=== PATIENT | female | born 1990 | race African-American/Black ===

== ENCOUNTER 2018-01-04 12:56 | Outpatient (CLI) | payer BC | END 2018-01-04 13:23 | disposition home or self-care (01) | LOC: LC 12:56 | PROVIDERS: ATTEND Obstetrics & Gynecology | PROC: 4A1HXCZ Monitoring of Products of Conception, Cardiac Rate, External Approach (ICD-10-PCS; principal; 2018-01-04) | DX: O48.0 Post-term pregnancy (principal); Z3A.40 40 weeks gestation of pregnancy | CPT/HCPCS: 59025 ==

== ENCOUNTER 2018-01-07 11:07 | Outpatient (CLI) | payer BC | END 2018-01-07 11:47 | disposition home or self-care (01) | LOC: LC 11:07 | PROVIDERS: ATTEND Student in an Organized Health Care Education/Training Program | PROC: 4A1HXCZ Monitoring of Products of Conception, Cardiac Rate, External Approach (ICD-10-PCS; principal; 2018-01-07) | DX: O48.0 Post-term pregnancy (principal); Z3A.40 40 weeks gestation of pregnancy | CPT/HCPCS: 59025 ==

== ENCOUNTER 2018-01-08 01:48 | Inpatient (IN) | payer BC ==
--- NOTE | 2018-01-08 01:50 | Non Stress Test Report ---
Non Stress Test Datetime Report Generated by CPN: 01/08/2018 01:50 DEMOGRAPHIC EGA NST: 40.3 EGA NST: 40.0 INDICATION Indication for Study: Ordered by Provider Indication for Study: Ordered by Provider; Other VITAL SIGNS Temperature - NST: 99.1 MONITORING Monitor Explained: Monitor Explained; Test Explained; Patient Verbalized Understanding Monitor Explained: Monitor Explained; Test Explained; Patient Verbalized Understanding Time on Monitor: 01/07/2018 11:15 Time on Monitor: 01/04/2018 13:06 Time off Monitor: 01/07/2018 11:42 Time off Monitor: 01/04/2018 13:28 NST Duration: 27 NST Duration: 22 NST INTERVENTIONS NST Interventions: PO Hydration; Reposition Patient NST Interventions: PO Hydration; Reposition Patient Physician Notified NST: SHELIA Michel Physician Notified NST: J Stevenson CNM BABY A: [id number] BABY A Movement : Present Movement : Present Contraction Frequency : x3 Contraction Frequency : intermittent FHR Baseline : 125 FHR Baseline : 135 Accelerations : 15X15 Accelerations : 15X15 Decelerations : None Decelerations : None Variability : Moderate 6-25bpm Variability : Moderate 6-25bpm NST Review: Meets Criteria for Reactive NST NST Review: Meets Criteria for Reactive NST NST Review and Verified By : TREMAYNE العراقيT Review and Verified By : TREMAYNE العراقي Results: Reactive NST Results: Reactive NST REPORT Report Trigger: Send Report
[2018-01-08] MEDS ORDERED: RINGERS SOLUTION,LACTATED 1,000 ML IV ONE (02:18)
[2018-01-08] MEDS ORDERED: PENICILLIN G-K 5 MILLION UNIT VIAL ONE ×2 (02:18→05:46)
[2018-01-08] MEDS ORDERED: PENICILLIN G POTASSIUM 5,000,000 UNIT in DEXTROSE 5%-WATER 100 ML IV ONE (02:18)
[2018-01-08] MEDS ORDERED: LIDOCAINE 1% INJ-PF (10 MG/ML) 30 ML SDV ONE (02:24)
[2018-01-08] MEDS ORDERED: OXYTOCIN/NORMAL SALINE 20 UNIT/1,000 ML RTUINJ ONE (02:24)
[2018-01-08] MEDS ORDERED: OXYTOCIN 10 UNIT/ML VIAL ONE (02:24)
[2018-01-08] MEDS ORDERED: MISOPROSTOL 0.2 MG TABLET ONE (02:24)
[2018-01-08] MEDS: RINGERS SOLUTION,LACTATED 1,000 ML IV PRN ×3 (02:50→09:28)
[2018-01-08 02:55] LABS: APPEARANCE,URINE SLIGHTLY-CLOUDY; BILIRUBIN,URINE NEGATIVE (NEGATIVE); COLOR,URINE STRAW; GLUCOSE, URINE NEGATIVE (NEGATIVE); KETONES,URINE NEGATIVE (NEGATIVE); LEUKOCYTE ESTERASE,URINE SMALL (NEGATIVE); NITRITE,URINE NEGATIVE (NEGATIVE); PROTEIN,URINE NEGATIVE (NEGATIVE); URINE SPECIFIC GRAVITY 1.008; UROBILINOGEN,URINE NEGATIVE mg/dL (<2.0)
[2018-01-08 02:57] LABS: ABSOLUTE EOSINOPHILS # (AUTO) 0.2 10^3/uL (0.0-0.6); ABSOLUTE LYMPHOCYTES (AUTO) 1.9 10^3/uL (0.5-4.7); ABSOLUTE MONOCYTES (AUTO) 1.4 10^3/uL (0.1-1.4); ABSOLUTE NEUT (AUTO) 10.3 10^3/uL (1.7-8.2); BASOPHILS % (AUTO) 0.3 % (0-2); EOSINOPHILS % (AUTO) 1.2 % (0-6); HEMATOCRIT 33.7 % (36.0-47.0); HEMOGLOBIN 11.2 g/dL (12.0-15.5); MEAN CORPUSCULAR HEMOGLOBIN 28.2 pg (27.0-33.4); MEAN CORPUSCULAR HGB CONC 33.1 g/dL (32.0-36.0); MEAN CORPUSCULAR VOLUME 85 fl (80-97); MONOCYTES % (AUTO) 9.8 % (3-13); PLATELET COUNT 209 10^3/uL (150-450); RED BLOOD COUNT 3.96 10^6/uL (3.72-5.28); RED CELL DISTRIBUTION WIDTH 15.3 % (11.5-14.0); SEGMENTED NEUTROPHILS % (AUTO) 74.7 % (42-78); TOTAL CELLS COUNTED % (AUTO) 100 %; WHITE BLOOD COUNT 13.8 10^3/uL (4.0-10.5)
--- NOTE | 2018-01-08 03:05 | Admission Physical ---
Datetime Report Generated by CPN: 01/08/2018 03:05 CURRENT ADMISSION Chief Complaint: Uterine Contractions Indication for Induction: Not Applicable Admit Impression : Term, Intrauterine ; Active Labor; Intact Membranes Admit Plan: Admit to Unit; Initiate Labor Protocol ALLERGIES Medication Allergies: No Medication Allergies: No Known Allergies (01/07/2018) Latex: No Latex Allergies OBSTETRICAL HISTORY EDC: 01/04/2018 00:00 : 2 Para: 1 Term: 1 : 0 SAB: 0 IAB: 0 Ectopic: 0 Livin Cesareans: 0 VBACs: 0 Multiple Births: 0 Gestational Diabetes: No Rh Sensitization: No Incompetent Cervix: No EUNICE: No Infertility: No ART Treatment: No Uterine Anomaly: No IUGR: No Hx Previous C/S: No Macrosomia: No Hx Loss/Stillborn: No PIH: No Hx : No Placenta Previa/Abruption: No Depression/PP Depression: No PTL/PROM: No Post Hemorrhage: No Current Procedures: Ultrasound; NST SEE RECORDS Alcohol: No Marijuana : No Cocaine: No Other Illicit Drugs: No Cigarettes: Never Smoker. [id number] MEDICAL HISTORY Diabetes: No Blood Transfusion: No Pulmonary Disease (Asthma, TB): No Breast Disease: No Hypertension: No Board Member Surgery: No Heart Disease: No Hosp/Surgery: No Autoimmune Disorder: No Anesthetic Complications: No Kidney Disease: No Abnormal Pap Smear: No Neuro/Epilepsy: No Psychiatric Disorders: No Other Medical Diseases: No Hepatitis/Liver Disease: No Significant Family History: No Varicosities/Phlebitis: No Trauma/Violence : No Thyroid Dysfunction: No INFECTIOUS HISTORY Gonorrhea: No Genital Herpes: No Chlamydia: No Tuberculosis: No Syphilis: No Hepatitis: No HIV/AIDS Exposure: No Rash or Viral Illness: No HPV: No PHYSICAL EXAM General: Normal HEENT: Normal Neurologic: Normal Thyroid: Deferred Heart: Normal Lungs: Normal Breast: Deferred Back: Normal Abdomen: Normal Genitourinary Exam: Normal Extremities: Normal DTRs: Normal Pelvic Type: Adequate Vital Signs: Reviewed VAGINAL EXAM Dilatation: 5 Effacement: 50 Station: 0 Contraction Comments: q3-5 MEMBRANES Membranes: Intact FETUS A EGA: 40.4 Monitoring: External US FHR- Baseline: 125 Variability: Moderate 6-25bpm Accelerations: 15X15 Decelerations: None FHR Category: Category I Presentation: Vertex Admit Comment: 27yo at 40+4ega presents for regular uterine ctx and now cervical change with cvx 5 cm. GBS pos - will give PCN for prophy. Failed 1 hr - passed 3 hr but fasting BS was 112. Admit to Labor and delivery. augment labor if needed. Pain meds if desires. Epidural upon patient request. Anticipate PLANS FOR LABOR AND DELIVERY Labor and Delivery: None Pain Management: Medications Feeding Preference: Formula Benefit of Breast Feed Discussed: Yes Circumcision: Yes INFORMED CONSENT Informed Consent Obtained: Vaginal Delivery; Risks, Benefits and Alternatives Discussed Signature: with User ID: [email or web address]
[2018-01-08 03:11] LABS: URINE AMPHETAMINES SCREEN NEGATIVE; URINE BARBITURATES SCREEN NEGATIVE; URINE BENZODIAZEPINES SCREEN NEGATIVE; URINE COCAINE SCREEN NEGATIVE; URINE MARIJUANA (THC) SCREEN NEGATIVE; URINE METHADONE SCREEN NEGATIVE; URINE PHENCYCLIDINE SCREEN NEGATIVE
[2018-01-08] MEDS ORDERED: PENICILLIN G POTASSIUM 2,500,000 UNIT in DEXTROSE 5%-WATER 50 ML IV SCH (06:19)
[2018-01-08] MEDS ORDERED: BENZOCAINE/MENTHOL AEROSOL SPRAY 56 ML TOP PRN (09:05)
[2018-01-08] MEDS ORDERED: PROMETHAZINE HCL INJ 25 MG/1 ML VIAL IV PRN (09:05)
[2018-01-08] MEDS ORDERED: PROMETHAZINE HCL 25 MG TABLET PO PRN (09:05)
[2018-01-08] MEDS ORDERED: OXYTOCIN/NORMAL SALINE 20 UNIT/1,000 ML RTUINJ IV PRN (09:05)
[2018-01-08] MEDS ORDERED: DIPHENHYDRAMINE HCL 25 MG CAPSULE PO PRN (09:05)
[2018-01-08] MEDS ORDERED: DIBUCAINE 1% OINTMENT 28 GM TP PRN (09:05)
[2018-01-08] MEDS ORDERED: MAGNESIUM HYDROXIDE SUSP 30 ML UDCUP PO PRN (09:05)
[2018-01-08] MEDS ORDERED: NA PHOS,M-B/NA PHOS,DI-BA (ADULT) 133 ML ENEMA PR PRN (09:05)
[2018-01-08] MEDS ORDERED: MEASLES,MUMPS&RUBELLA VACC/PF 0.5 ML VIAL SUBCUT PRN (09:05)
[2018-01-08] MEDS ORDERED: ACETAMINOPHEN 650 MG SUPP.RECT PR PRN (09:05)
[2018-01-08] MEDS ORDERED: PSEUDOEPHEDRINE HCL 30 MG TABLET PO PRN (09:05)
[2018-01-08] MEDS ORDERED: DIPH/PERTUSS(ACELL)/TETANUS VAC/PF 0.5 ML SYR (>=10YO) IM PRN (09:05)
[2018-01-08] MEDS ORDERED: PROMETHAZINE HCL 25 MG SUPP.RECT PR PRN (09:05)
[2018-01-08] MEDS ORDERED: GLYCERIN/WITCH HAZEL LEAF 1 EACH MED..PAD TP PRN (09:05)
[2018-01-08] MEDS ORDERED: ACETAMINOPHEN WITH CODEINE #3 TABLET PO PRN ×2 (09:05)
--- NOTE | 2018-01-08 09:07 | Warning Signs in Babies ---
VOD Warning Signs Datetime Report Generated by [facility]: 01/08/2018 09:06 VOD#[id number] -Warning Signs in Babies: Needs to be viewed. (01/04/2018 10:14:Becky Bradshaw RN)
[2018-01-08] MEDS ORDERED: IBUPROFEN 800 MG TABLET ONE (10:13)
--- NOTE | 2018-01-08 10:33 | Delivery Summary ---
Del Sum A-C Datetime Report Generated by CPN: 01/08/2018 10:33 DELIVERY PERSONNEL DELIVERY PERSONNEL: [id number] Delivery Doctor:: Xochitl Stevenson CNM Labor and Delivery Nurse:: Becky Bradshaw RN Nursery Nurse:: Stephanie CASPER Hole Digger Truck Driver/GRAIN MILL PRODUCTS INSPECTOR: Agatha Gonzales GRAIN MILL PRODUCTS INSPECTOR II MATERNAL INFORMATION Delivery Anesthesia: Local Medications During Delivery: none Medications After Delivery: Pitocin Drip 20 Units/1000ml NSS Maternal Complications: None Provider Comments: viable male from OA to GLADYS over intact perineum, vaginal lac and rt periurethral, baby place on mothers abd, cord clamped and cut by FOB after 2 min, NC x 1, reduced before delivery withou difficulty, spont delivery of grossly nl intact placenta, 3 vc, lacerations repaired with 2-0 chroomic without difficulty baby and mom remaind in recovery in stable condition xylocaine 1% used for repair LABOR SUMMARY EDC: 01/04/2018 00:00 No. Babies in Womb: 1 Attempted: No Labor Anesthesia: None LABOR INFORMATION Onset of Labor: 01/08/2018 01:30 Complete Dilatation: 01/08/2018 08:25 Oxytocin: N/A Group B Beta Strep: positive Antibiotics # of Doses: 2 Antibiotics Time of Last Dose: 619 Name of Antibiotic Given: PCN Steroids Given: None Reason Steroids Not Administered: Not Applicable MEMBRANES Membranes Rupture Method: Artificial Rupture of Membranes: 01/08/2018 08:25 Length of Rupture (hr): 0.15 Amniotic Fluid Color: Clear Amniotic Fluid Amount: Scant Amniotic Fluid Odor: Normal STAGES OF LABOR Stage 1 hr: 6 Stage 1 min: 55 Stage 2 hr: 0 Stage 2 min: 9 Stage 3 hr: 0 Stage 3 min: 8 Total Time in Labor hr: 7 Total Time in Labor min: 12 VAGINAL DELIVERY Episiotomy: None Laceration #1: Vaginal Laceration Extension #1: First Degree Laceration #2: Periurethral Laceration Extension #2: First Degree Laceration Repair: Yes Laceration Repair Note: 2-0 chromic Sponge Count Correct: N/A; Vaginal Sweep Performed Sharps Count Correct: N/A CSECTION DELIVERY CSection Incision: N/A BABY A INFORMATION Delivery Date/Time: 01/08/2018 08:34 Method of Delivery: Vaginal Born in Route : No : N/A Forceps: N/A Vacuum Extraction: N/A Shoulder Dystocia : No PRESENTATION/POSITION BABY A Presentation: Cephalic Cephalic Presentation: Vertex Vertex Position: Left Occipital Anterior Breech Presentation: N/A PLACENTA INFORMATION BABY A Placenta Delivery Time : 01/08/2018 08:42 Placenta Method of Delivery: Spontaneous Placenta Status: Delivered SCORES BABY A Heart Rate 1 min: >100 bpm Resp Effort 1 min: Good Cry Reflex Irritability 1 min: Cough or Sneeze or Pulls Away Muscle Tone 1 min: Active Motion Color 1 min: Body [place], Extremities Blue SCORE 1 MIN: 9 Heart Rate 5 min: >100 bpm Resp Effort 5 min: Good Cry Reflex Irritability 5 min: Cough or Sneeze or Pulls Away Muscle Tone 5 min: Active Motion Color 5 min: Body [place], Extremities Blue SCORE 5 MIN: 9 Resuscitation Effort 10 min: N/A INFORMATION BABY A Gestational Age at Delivery: 40.4 Gestational Status: Full Term- 39- 40.6 Weeks Outcome : Liveborn Infant Condition : Stable Sex: Male IDENTIFICATION BABY A Infant Verification Date/Time: 01/08/2018 08:51 ID Band Number: [id number] Mother's Name Verified: Yes Infant RN Verifying Infant: Killing[place] RN Additional Verifying Personnel: Brown GRAIN MILL PRODUCTS INSPECTOR WEIGHT/LENGTH BABY A Infant Birthweight (gm): 3350 Weight (lb): 7 Infant Weight (oz): 6 Length (in): 20.50 Infant Length (cm): 52.07 CORD INFORMATION BABY A No. Cord Vessels: 3 Nuchal Cord : Around Neck x1, Loose Cord Blood Taken: Yes-For Eval (Mom's Blood Type - or O+) Suction: None ASSESSMENT BABY A Skin to Skin: Yes BABY B INFORMATION : N/A
[2018-01-08] MEDS: FAMOTIDINE 20 MG TABLET PO SCH ×2 (11:57→21:24)
[2018-01-08] MEDS: FERROUS SULFATE 325 MG TABLET PO SCH ×2 (11:57→18:56)
[2018-01-08] MEDS: DOCUSATE SODIUM 100 MG CAPSULE PO SCH ×2 (11:58→18:56)
[2018-01-08] MEDS: PRENATAL VITAMIN W DHA CAPSULE PO SCH (11:58)
[2018-01-08] MEDS: SENNOSIDES/DOCUSATE 8.6-50 MG 1 EACH TABLET PO SCH (11:58)
[2018-01-08] MEDS: IBUPROFEN 800 MG TABLET PO SCH ×2 (13:59→21:25)
[2018-01-09 06:28] LABS: ABSOLUTE BASOPHILS # (AUTO) 0.1 10^3/uL (0.0-0.2); ABSOLUTE EOSINOPHILS # (AUTO) 0.1 10^3/uL (0.0-0.6); ABSOLUTE LYMPHOCYTES (AUTO) 2.6 10^3/uL (0.5-4.7); ABSOLUTE MONOCYTES (AUTO) 1.7 10^3/uL (0.1-1.4); ABSOLUTE NEUT (AUTO) 14.2 10^3/uL (1.7-8.2); BASOPHILS % (AUTO) 0.4 % (0-2); EOSINOPHILS % (AUTO) 0.6 % (0-6); HEMATOCRIT 33.2 % (36.0-47.0); HEMOGLOBIN 10.8 g/dL (12.0-15.5); LYMPHOCYTES % (AUTO) 13.9 % (13-45); MEAN CORPUSCULAR HEMOGLOBIN 27.7 pg (27.0-33.4); MEAN CORPUSCULAR HGB CONC 32.6 g/dL (32.0-36.0); MEAN CORPUSCULAR VOLUME 85 fl (80-97); MONOCYTES % (AUTO) 9.1 % (3-13); PLATELET COUNT 188 10^3/uL (150-450); RED BLOOD COUNT 3.91 10^6/uL (3.72-5.28); RED CELL DISTRIBUTION WIDTH 15.2 % (11.5-14.0); TOTAL CELLS COUNTED % (AUTO) 100 %; WHITE BLOOD COUNT 18.7 10^3/uL (4.0-10.5)
[2018-01-09] MEDS: IBUPROFEN 800 MG TABLET PO SCH ×3 (06:45→21:00)
--- NOTE | 2018-01-09 09:29 | PDOC PROGRESS REPORT ---
Subjective-OB Progress Note for:: 01/09/18 Subjective: Doing well, no c/o, , voiding Physical Exam (OB) Vital Signs: Temp Pulse Resp BP Pulse Ox 97.7 F 87 18 114/70 98 01/09/18 08:05 01/09/18 08:05 01/09/18 08:05 01/09/18 08:05 01/09/18 08:05 Intake & Output 01/08/18 01/09/18 01/10/18 06:59 06:59 06:59 Intake Total 2829 Balance 2829 Weight 95 kg - PIH/Pre-Eclampsia DTR's: 2 + Clonus: Negative Headache: Absent Epigastric Pain: No Visual Changes: No - Lochia Lochia Amount: Small 10-25 ml Lochia Color: Rubra/Red - Abdomen Description: Tender, Soft Hernia Present: No Fundal Description: Firm, Midline Fundal Height: u/u - u/2 Objective-Diagnostic Laboratory: 01/09/18 06:19 01/09/18 06:19 WBC 18.7 H RBC 3.91 Hgb 10.8 L Hct 33.2 L MCV 85 MCH 27.7 MCHC 32.6 RDW 15.2 H Plt Count 188 Seg Neutrophils % 76.0 Lymphocytes % 13.9 Monocytes % 9.1 Eosinophils % 0.6 Basophils % 0.4 Absolute Neutrophils 14.2 H Absolute Lymphocytes 2.6 Absolute Monocytes 1.7 H Absolute Eosinophils 0.1 Absolute Basophils 0.1 Assessment and Plan(PN) - Assessment and Plan (1) Delivery normal Is this a current diagnosis for this admission?: Yes (2) Carrier of group B Streptococcus Is this a current diagnosis for this admission?: Yes (3) Active labor at term Is this a current diagnosis for this admission?: Yes - Time Spent with Patient Time with patient: Less than 15 minutes Medications reviewed and adjusted accordingly: Yes - Disposition Anticipated Discharge: Home Within: within 24 hours
[2018-01-09] MEDS: DOCUSATE SODIUM 100 MG CAPSULE PO SCH ×2 (10:10→17:12)
[2018-01-09] MEDS: FERROUS SULFATE 325 MG TABLET PO SCH ×2 (10:10→17:12)
[2018-01-09] MEDS: FAMOTIDINE 20 MG TABLET PO SCH ×2 (10:10→21:02)
[2018-01-09] MEDS: SENNOSIDES/DOCUSATE 8.6-50 MG 1 EACH TABLET PO SCH (10:10)
[2018-01-09] MEDS: PRENATAL VITAMIN W DHA CAPSULE PO SCH (10:10)
[2018-01-10] MEDS: IBUPROFEN 800 MG TABLET PO SCH (06:11)
[2018-01-10 07:55] VITALS: BP 117/62
[2018-01-10 09:11] LABS: HEMATOCRIT 34.3 % (36.0-47.0); HEMOGLOBIN 11.2 g/dL (12.0-15.5); MEAN CORPUSCULAR HEMOGLOBIN 27.9 pg (27.0-33.4); MEAN CORPUSCULAR HGB CONC 32.7 g/dL (32.0-36.0); MEAN CORPUSCULAR VOLUME 86 fl (80-97); PLATELET COUNT 199 10^3/uL (150-450); RED BLOOD COUNT 4.02 10^6/uL (3.72-5.28); RED CELL DISTRIBUTION WIDTH 15.5 % (11.5-14.0); WHITE BLOOD COUNT 12.7 10^3/uL (4.0-10.5)
[2018-01-10] MEDS: DOCUSATE SODIUM 100 MG CAPSULE PO SCH (09:32)
[2018-01-10] MEDS: FAMOTIDINE 20 MG TABLET PO SCH (09:32)
[2018-01-10] MEDS: FERROUS SULFATE 325 MG TABLET PO SCH (09:32)
[2018-01-10] MEDS: SENNOSIDES/DOCUSATE 8.6-50 MG 1 EACH TABLET PO SCH (09:32)
[2018-01-10] MEDS: PRENATAL VITAMIN W DHA CAPSULE PO SCH (09:34)
--- NOTE | 2018-01-10 10:05 | PDOC PROGRESS REPORT ---
Subjective-OB Progress Note for:: 01/10/18 Subjective: Doing well, ready to go home, no c/o Physical Exam (OB) Vital Signs: Temp Pulse Resp BP Pulse Ox 97.8 F 84 18 117/62 99 01/10/18 08:50 01/10/18 08:50 01/10/18 08:50 01/10/18 08:50 01/10/18 08:50 Intake & Output 01/09/18 01/10/18 01/11/18 06:59 06:59 06:59 Intake Total 2829 Balance 2829 - PIH/Pre-Eclampsia DTR's: 2 + Clonus: Negative Headache: Absent Epigastric Pain: No Visual Changes: No - Lochia Lochia Amount: Small 10-25 ml Lochia Color: Rubra/Red - Abdomen Description: Soft Hernia Present: No Fundal Description: Firm, Midline Fundal Height: u/u - u/2 Objective-Diagnostic Laboratory: 01/10/18 08:40 01/10/18 08:40 WBC 12.7 H RBC 4.02 Hgb 11.2 L Hct 34.3 L MCV 86 MCH 27.9 MCHC 32.7 RDW 15.5 H Plt Count 199 Assessment and Plan(PN) - Assessment and Plan (1) Delivery normal Is this a current diagnosis for this admission?: Yes (2) Carrier of group B Streptococcus Is this a current diagnosis for this admission?: Yes (3) Active labor at term Is this a current diagnosis for this admission?: Yes - Time Spent with Patient Time with patient: Less than 15 minutes Medications reviewed and adjusted accordingly: Yes - Disposition Anticipated Discharge: Home Within: Other - home today
--- NOTE | 2018-01-10 10:08 | PDOC DISCHARGE SUMMARY ---
Final Diagnosis Discharge Date: 01/10/18 - Final Diagnosis (1) Delivery normal Is this a current diagnosis for this admission?: Yes (2) Carrier of group B Streptococcus Is this a current diagnosis for this admission?: Yes (3) Active labor at term Is this a current diagnosis for this admission?: Yes Discharge Data - Discharge Medication Home Medications: Pnv No.121/Iron/Folic Acid [ Multivitamin Tablet] 1 tab PO DAILY Gestational Age: 40.4 Reason(s) for Admission: Onset of Labor, Group B Strep Positive Procedures: NST, Ultrasound Intrapartum Procedure(s): Spontaneous Vaginal Delivery Complication(s): Laceration-Labial - Bonnie Data Baby 1 Male Home with Mother: Yes Complications: No - Diagnosis Test Laboratory: Temp Pulse Resp BP Pulse Ox 97.8 F 84 18 117/62 99 01/10/18 08:50 01/10/18 08:50 01/10/18 08:50 01/10/18 08:50 01/10/18 08:50 01/08/18 01/08/18 01/09/18 01:54 02:44 06:19 RBC 3.96 3.91 Hgb 11.2 L 10.8 L Hct 33.7 L 33.2 L Urine Opiates Screen NEGATIVE 01/10/18 08:40 RBC 4.02 Hgb 11.2 L Hct 34.3 L Urine Opiates Screen - Discharge information/Instructions Discharge Activity: Balance Activity w/Rest, No Lifting Over 10 Pounds, Pelvic Rest, No tub bath, Walk Frequently Discharge Diet: As Tolerated, Regular Disposition: HOME, SELF-CARE Follow up with: [facility] in: 3, Weeks
== END 2018-01-10 13:15 | disposition home or self-care (01) | DRG 775 ==
LOC: EEVIPCON 01:48 → LC 01:48 → LR 02:18 → 2S 11:16
PROVIDERS: ADMIT Student in an Organized Health Care Education/Training Program; ATTEND Student in an Organized Health Care Education/Training Program
PROC: 10E0XZZ Delivery of Products of Conception, External Approach (ICD-10-PCS; principal; 2018-01-08)
PROC: 0HQ9XZZ Repair Perineum Skin, External Approach (ICD-10-PCS; 2018-01-08)
PROC: 0UQMXZZ Repair Vulva, External Approach (ICD-10-PCS; 2018-01-08)
PROC: 4A1HXCZ Monitoring of Products of Conception, Cardiac Rate, External Approach (ICD-10-PCS; 2018-01-08)
PROC: 3E0234Z Introduction of Serum, Toxoid and Vaccine into Muscle, Percutaneous Approach (ICD-10-PCS; 2018-01-10)
DX: O99.824 Streptococcus B carrier state complicating childbirth (principal); O71.82 Other specified trauma to perineum and vulva; O70.0 First degree perineal laceration during delivery; O69.81X0 Labor and delivery complicated by cord around neck, without compression, not applicable or unspecified; Z3A.40 40 weeks gestation of pregnancy; Z23 Encounter for immunization; Z37.0 Single live birth
CPT/HCPCS: 36415; 80307; 81005; 85025; 85027; 86592; 86850; 86900; 86901; 90715; J2540; J2590; J3490

== ENCOUNTER 2019-02-28 17:03 | Outpatient (CLI) | payer BC ==
[2019-02-28 17:40] LABS: APPEARANCE,URINE CLEAR; BILIRUBIN,URINE NEGATIVE (NEGATIVE); COLOR,URINE STRAW; GLUCOSE, URINE NEGATIVE (NEGATIVE); KETONES,URINE TRACE mg/dL (NEGATIVE); LEUKOCYTE ESTERASE,URINE SMALL (NEGATIVE); NITRITE,URINE NEGATIVE (NEGATIVE); PROTEIN,URINE NEGATIVE (NEGATIVE); URINE SPECIFIC GRAVITY 1.008; UROBILINOGEN,URINE NEGATIVE mg/dL (<2.0)
[2019-02-28] MEDS ORDERED: RINGERS SOLUTION,LACTATED 1,000 ML IV SCH (17:45)
[2019-02-28 18:12] LABS: URINE AMPHETAMINES SCREEN NEGATIVE; URINE BARBITURATES SCREEN NEGATIVE; URINE BENZODIAZEPINES SCREEN NEGATIVE; URINE COCAINE SCREEN NEGATIVE; URINE MARIJUANA (THC) SCREEN NEGATIVE; URINE METHADONE SCREEN NEGATIVE; URINE PHENCYCLIDINE SCREEN NEGATIVE
--- NOTE | 2019-02-28 21:51 | Non Stress Test Report ---
Non Stress Test Datetime Report Generated by CPN: 02/28/2019 21:50 DEMOGRAPHIC EGA NST: 37.1 INDICATION Indication for Study (NST) Other: 37.1 Low VADIM MONITORING Monitor Explained: Monitor Explained; Test Explained; Patient Verbalized Understanding Time on Monitor: 02/28/2019 17:30 Time off Monitor: 02/28/2019 17:53 NST Duration: 23 NST INTERVENTIONS NST Interventions: IV Fluids Physician Notified NST: Dr. Younger BABY A: [id number] BABY A Movement : Present Contraction Frequency : Denies FHR Baseline : 140 Accelerations : 15X15 Decelerations : None Variability : Moderate 6-25bpm NST Review: Meets Criteria for Reactive NST NST Review and Verified By : Merced Dobbs RN NST Results: Reactive NST REPORT Report Trigger: Send Report
--- NOTE | 2019-03-01 05:55 | RADIOLOGY REPORT (SQ) ---
EXAM DESCRIPTION: US LIMITED COMPLETED DATE/TME: 02/28/2019 21:10 CLINICAL HISTORY: 28 years, Female, Repeat VADIM @ 37.1 wks COMPARISON: None available at the time of dictation. TECHNIQUE: Transabdominal pelvic ultrasound. LIMITATIONS: None. FINDINGS: A single live intrauterine is identified in the cephalic position. The cervix is closed and measures approximately 3.5 cm in length. The placenta is anterior. The heart rate measures 132 bpm. The VADIM measures 9.1 cm. IMPRESSION: Single live intrauterine . VADIM measures 9.1 cm. copyright 2010 [employer]- All Rights Reserved
== END 2019-02-28 21:52 | disposition home or self-care (01) ==
LOC: EEVIPCON 17:03 → LC 17:03
PROVIDERS: ATTEND Obstetrics & Gynecology
PROC: 4A1HXCZ Monitoring of Products of Conception, Cardiac Rate, External Approach (ICD-10-PCS; principal; 2019-02-28)
DX: O26.893 Other specified pregnancy related conditions, third trimester (principal); E86.0 Dehydration; Z3A.37 37 weeks gestation of pregnancy
CPT/HCPCS: 59025; 76815; 80307; 81005

== ENCOUNTER 2019-03-12 18:15 | Inpatient (IN) | payer BC ==
[2019-03-12] MEDS ORDERED: RINGERS SOLUTION,LACTATED 1,000 ML IV PRN (18:40)
[2019-03-12] MEDS ORDERED: NALBUPHINE HCL INJ 10 MG/1 ML AMPULE ONE (18:46)
[2019-03-12 18:47] LABS: APPEARANCE,URINE CLOUDY; BILIRUBIN,URINE NEGATIVE (NEGATIVE); COLOR,URINE YELLOW; GLUCOSE, URINE NEGATIVE (NEGATIVE); KETONES,URINE NEGATIVE (NEGATIVE); LEUKOCYTE ESTERASE,URINE LARGE (NEGATIVE); NITRITE,URINE NEGATIVE (NEGATIVE); PROTEIN,URINE 30 mg/dL (NEGATIVE); URINE SPECIFIC GRAVITY 1.024; UROBILINOGEN,URINE NEGATIVE mg/dL (<2.0)
[2019-03-12] MEDS ORDERED: MISOPROSTOL 0.2 MG TABLET ONE (19:09)
[2019-03-12] MEDS ORDERED: OXYTOCIN/NORMAL SALINE 20 UNIT/1,000 ML RTUINJ ONE (19:09)
[2019-03-12] MEDS ORDERED: LIDOCAINE 1% INJ-PF (10 MG/ML) 30 ML SDV ONE (19:09)
[2019-03-12] MEDS ORDERED: OXYTOCIN 10 UNIT/ML VIAL ONE (19:09)
[2019-03-12 19:10] LABS: ABSOLUTE BASOPHILS # (AUTO) 0.1 10^3/uL (0.0-0.2); ABSOLUTE EOSINOPHILS # (AUTO) 0.1 10^3/uL (0.0-0.6); ABSOLUTE LYMPHOCYTES (AUTO) 2.3 10^3/uL (0.5-4.7); ABSOLUTE NEUT (AUTO) 10.5 10^3/uL (1.7-8.2); BASOPHILS % (AUTO) 0.4 % (0-2); EOSINOPHILS % (AUTO) 0.9 % (0-6); HEMATOCRIT 38.1 % (36.0-47.0); LYMPHOCYTES % (AUTO) 16.2 % (13-45); MEAN CORPUSCULAR HEMOGLOBIN 29.4 pg (27.0-33.4); MEAN CORPUSCULAR HGB CONC 34.2 g/dL (32.0-36.0); MEAN CORPUSCULAR VOLUME 86 fl (80-97); MONOCYTES % (AUTO) 7.3 % (3-13); PLATELET COUNT 231 10^3/uL (150-450); RED BLOOD COUNT 4.43 10^6/uL (3.72-5.28); RED CELL DISTRIBUTION WIDTH 14.7 % (11.5-14.0); SEGMENTED NEUTROPHILS % (AUTO) 75.2 % (42-78); TOTAL CELLS COUNTED % (AUTO) 100 %
[2019-03-12] MEDS ORDERED: RINGERS SOLUTION,LACTATED 1,000 ML IV ONE (19:10)
[2019-03-12 19:13] LABS: URINE AMPHETAMINES SCREEN NEGATIVE; URINE BARBITURATES SCREEN NEGATIVE; URINE BENZODIAZEPINES SCREEN NEGATIVE; URINE COCAINE SCREEN NEGATIVE; URINE MARIJUANA (THC) SCREEN NEGATIVE; URINE METHADONE SCREEN NEGATIVE; URINE PHENCYCLIDINE SCREEN NEGATIVE
[2019-03-12] MEDS ORDERED: BENZOCAINE/MENTHOL AEROSOL SPRAY 56 ML TOP PRN (21:55)
[2019-03-12] MEDS ORDERED: ACETAMINOPHEN WITH CODEINE #3 TABLET PO PRN (21:55)
[2019-03-12] MEDS ORDERED: MEASLES,MUMPS&RUBELLA VACC/PF 0.5 ML VIAL SUBCUT PRN (21:55)
[2019-03-12] MEDS ORDERED: GLYCERIN/WITCH HAZEL LEAF 1 EACH MED..WIPE TP PRN (21:55)
[2019-03-12] MEDS ORDERED: MAGNESIUM HYDROXIDE SUSP 30 ML UDCUP PO PRN (21:55)
[2019-03-12] MEDS ORDERED: PROMETHAZINE HCL 25 MG SUPP.RECT PR PRN (21:55)
[2019-03-12] MEDS ORDERED: PROMETHAZINE HCL INJ 25 MG/1 ML VIAL IV PRN (21:55)
[2019-03-12] MEDS ORDERED: PSEUDOEPHEDRINE HCL 30 MG TABLET PO PRN (21:55)
[2019-03-12] MEDS ORDERED: ACETAMINOPHEN 650 MG SUPP.RECT PR PRN (21:55)
[2019-03-12] MEDS ORDERED: DIBUCAINE 1% OINTMENT 56 GM TP PRN (21:55)
[2019-03-12] MEDS ORDERED: PROMETHAZINE HCL 25 MG TABLET PO PRN (21:55)
[2019-03-12] MEDS ORDERED: NA PHOS,M-B/NA PHOS,DI-BA (ADULT) 133 ML ENEMA PR PRN (21:55)
[2019-03-12] MEDS ORDERED: DIPHENHYDRAMINE HCL 25 MG CAPSULE PO PRN (21:55)
[2019-03-12] MEDS ORDERED: OXYTOCIN/NORMAL SALINE 20 UNIT/1,000 ML RTUINJ IV PRN (21:55)
[2019-03-12] MEDS ORDERED: DIPH/PERTUSS(ACELL)/TETANUS VAC/PF 0.5 ML SYR (>=10YO) IM PRN (21:55)
[2019-03-12] MEDS ORDERED: IBUPROFEN 800 MG TABLET ONE (21:58)
[2019-03-12] MEDS: IBUPROFEN 800 MG TABLET PO SCH (22:20)
--- NOTE | 2019-03-12 22:24 | Admission Physical ---
Datetime Report Generated by CPN: 03/12/2019 22:24 CURRENT ADMISSION Chief Complaint: Uterine Contractions Admit Impression : Term, Intrauterine ; Active Labor Admit Plan: Admit to Unit; Initiate Labor Protocol ALLERGIES Medication Allergies: No Medication Allergies: No Known Allergies (01/07/2018) Latex: No Latex Allergies Food Allergies: none Environmental Allergies: none OBSTETRICAL HISTORY EDC: 03/20/2019 00:00 : 3 Para: 2 Term: 2 : 0 SAB: 0 IAB: 0 Ectopic: 0 Livin Cesareans: 0 VBACs: 0 Multiple Births: 0 Gestational Diabetes: No Rh Sensitization: No Incompetent Cervix: No EUNICE: No Infertility: No ART Treatment: No Uterine Anomaly: No IUGR: No Hx Previous C/S: No Macrosomia: No Hx Loss/Stillborn: No PIH: No Hx : No Placenta Previa/Abruption: No Depression/PP Depression: No PTL/PROM: No Post Hemorrhage: No Current Procedures: Ultrasound; NST Obstetrical History Comments: G1- 2009 viable baby boy G2- 2017 viable baby boy G3- Current, SEE RECORDS Alcohol: No Marijuana : No Cocaine: No Other Illicit Drugs: No Cigarettes: Never Smoker. [id number] MEDICAL HISTORY Diabetes: No Blood Transfusion: No Pulmonary Disease (Asthma, TB): No Breast Disease: No Hypertension: No Speaking Unit Assembler Surgery: No Heart Disease: No Hosp/Surgery: No Autoimmune Disorder: No Anesthetic Complications: No Kidney Disease: Yes Abnormal Pap Smear: No Neuro/Epilepsy: No Psychiatric Disorders: No Other Medical Diseases: No Hepatitis/Liver Disease: No Significant Family History: No Varicosities/Phlebitis: No Trauma/Violence : No Thyroid Dysfunction: No Medical History Comments: Hx: UTI INFECTIOUS HISTORY Gonorrhea: No Genital Herpes: No Chlamydia: No Tuberculosis: No Syphilis: No Hepatitis: No HIV/AIDS Exposure: No Rash or Viral Illness: No HPV: No PHYSICAL EXAM General: Normal HEENT: Normal Neurologic: Normal Thyroid: Normal Heart: Normal Lungs: Normal Breast: Normal Back: Normal Abdomen: Normal Genitourinary Exam: Normal Extremities: Normal DTRs: Normal Pelvic Type: Adequate Vital Signs: Reviewed; Within Normal Limits VAGINAL EXAM Dilatation: 5 Effacement: 50 Station: -2 Contraction Comments: every 1-2 minutes MEMBRANES Pooling: Negative Membranes: Intact FETUS A EGA: 38.6 Monitoring: External US FHR- Baseline: 135 Variability: Moderate 6-25bpm Accelerations: 15X15 Decelerations: None FHR Category: Category I Presentation: Vertex Admit Comment: at 38.6 wks in active labor -Admit to LDR -IVFs and NPO -GBS negative -Hx 2 prior -Anticipate -Desires natural delivery PLANS FOR LABOR AND DELIVERY Labor and Delivery: None Pain Management: Medications Feeding Preference: Breast Benefit of Breast Feed Discussed: Yes Circumcision: N/A INFORMED CONSENT Informed Consent Obtained: Vaginal Delivery; Section Delivery; Vacuum/Forceps Assist; Risks, Benefits and Alternatives Discussed Signature: with User ID: Fadi : with User ID: [email or web address]
[2019-03-13] MEDS: FAMOTIDINE 20 MG TABLET PO SCH ×3 (00:23→22:12)
[2019-03-13] MEDS: IBUPROFEN 800 MG TABLET PO SCH ×3 (05:38→22:12)
[2019-03-13] MEDS: ACETAMINOPHEN WITH CODEINE #3 TABLET PO PRN ×2 (06:43→18:29)
[2019-03-13 07:44] LABS: HEMATOCRIT 37.7 % (36.0-47.0); HEMOGLOBIN 12.7 g/dL (12.0-15.5); MEAN CORPUSCULAR HEMOGLOBIN 29.2 pg (27.0-33.4); MEAN CORPUSCULAR HGB CONC 33.7 g/dL (32.0-36.0); MEAN CORPUSCULAR VOLUME 87 fl (80-97); PLATELET COUNT 197 10^3/uL (150-450); RED BLOOD COUNT 4.35 10^6/uL (3.72-5.28); RED CELL DISTRIBUTION WIDTH 14.9 % (11.5-14.0)
--- NOTE | 2019-03-13 09:41 | PDOC PROGRESS REPORT ---
Subjective-OB Progress Note for:: 03/13/19 - PP day #1, doing well, up to void, no complaints, O+, Rubella Immune, Physical Exam (OB) Vital Signs: Temp Pulse Resp BP Pulse Ox 98.0 F 91 18 102/62 97 03/13/19 07:33 03/13/19 07:33 03/13/19 07:33 03/13/19 07:33 03/13/19 07:33 Intake & Output 03/12/19 03/13/19 03/14/19 06:59 06:59 06:59 Weight 95.5 kg - General General Appearance: Appears well, Alert In distress: None - PIH/Pre-Eclampsia DTR's: 1 + Clonus: Negative Headache: Absent Epigastric Pain: No Visual Changes: No - Lochia Lochia Amount: Scant < 10 ml Lochia Color: Rubra/Red - Abdomen Description: Soft, Round Hernia Present: No Fundal Description: Firm, Midline Fundal Height: u/u - u/2 - Respiratory Respiratory Status: No respiratory distress - Abdominal Inspection: Normal Distension: No distension Tenderness: Nontender - Genitourinary Genitourinary Note: voiding - Extremities Upper extremity: Normal inspection Lower extremities: Normal inspection - Neurological Cognition: Normal Orientation: AAOx4 - Psychological Associated symptoms: Normal affect, Normal mood - Skin Skin Temperature: Warm Skin Moisture: Dry Objective-Diagnostic Laboratory: 03/13/19 07:16 03/12/19 03/12/19 03/12/19 18:41 18:45 18:45 WBC 14.0 H RBC 4.43 Hgb 13.0 Hct 38.1 MCV 86 MCH 29.4 MCHC 34.2 RDW 14.7 H Plt Count 231 Seg Neutrophils % 75.2 Urine Color YELLOW Urine Appearance CLOUDY Urine pH 6.0 Ur Specific [place] 1.024 Urine Protein 30 H Urine Glucose (UA) NEGATIVE Urine Ketones NEGATIVE Urine Blood SMALL H Urine Nitrite NEGATIVE Ur Leukocyte Esterase LARGE H Blood Type O POSITIVE Antibody Screen NEGATIVE 03/13/19 07:16 WBC 20.0 H RBC 4.35 Hgb 12.7 Hct 37.7 MCV 87 MCH 29.2 MCHC 33.7 RDW 14.9 H Plt Count 197 Seg Neutrophils % Urine Color Urine Appearance Urine pH Ur Specific [place] Urine Protein Urine Glucose (UA) Urine Ketones Urine Blood Urine Nitrite Ur Leukocyte Esterase Blood Type Antibody Screen Assessment and Plan(PN) - Assessment and Plan (1) Active labor at term Is this a current diagnosis for this admission?: Yes (2) Carrier of group B Streptococcus Is this a current diagnosis for this admission?: Yes (3) Delivery normal Is this a current diagnosis for this admission?: Yes Plan:: Ambulation encouraged. Routine PP orders - Time Spent with Patient Time with patient: Less than 15 minutes Medications reviewed and adjusted accordingly: Yes - Disposition Anticipated Discharge: Home Within: within 24 hours
[2019-03-13] MEDS: DOCUSATE SODIUM 100 MG CAPSULE PO SCH ×2 (09:49→18:25)
[2019-03-13] MEDS: FERROUS SULFATE 325 MG TABLET PO SCH ×2 (09:49→18:25)
[2019-03-13] MEDS: PRENATAL VITAMIN W DHA CAPSULE PO SCH (09:49)
[2019-03-13] MEDS: SENNOSIDES/DOCUSATE 8.6-50 MG 1 EACH TABLET PO SCH (09:49)
[2019-03-14] MEDS: IBUPROFEN 800 MG TABLET PO SCH (05:33)
--- NOTE | 2019-03-14 08:57 | PDOC PROGRESS REPORT ---
Subjective-OB Progress Note for:: 03/14/19 Subjective: Doing well, baby is jaundiced, unsure if baby is going today, , eating and voiding well Physical Exam (OB) Vital Signs: Temp Pulse Resp BP Pulse Ox 97.6 F 66 16 124/83 99 03/14/19 07:18 03/14/19 07:18 03/14/19 07:18 03/14/19 07:18 03/14/19 07:18 Intake & Output 03/13/19 03/14/19 03/15/19 06:59 06:59 06:59 Weight 95.5 kg - PIH/Pre-Eclampsia DTR's: 1 + Clonus: Negative Headache: Absent Epigastric Pain: No Visual Changes: No - Lochia Lochia Amount: Scant < 10 ml Lochia Color: Rubra/Red - Abdomen Description: Soft, Round Hernia Present: No Fundal Description: Firm, Midline Fundal Height: u/u - u/2 Objective-Diagnostic Laboratory: 03/13/19 07:16 Assessment and Plan(PN) - Assessment and Plan (1) Delivery normal Is this a current diagnosis for this admission?: Yes (2) Carrier of group B Streptococcus Is this a current diagnosis for this admission?: Yes (3) Active labor at term Is this a current diagnosis for this admission?: Yes - Time Spent with Patient Time with patient: Less than 15 minutes Medications reviewed and adjusted accordingly: Yes - Disposition Anticipated Discharge: Home Within: within 24 hours
--- NOTE | 2019-03-14 09:04 | PDOC DISCHARGE SUMMARY ---
Impression - Admit/DC Date/PCP Admission Date/Primary Care Provider: 03/12/19 18:48 ALMTIA MALDONADO MD Discharge Date: 03/14/19 - Discharge Diagnosis (1) Delivery normal Is this a current diagnosis for this admission?: Yes (2) Carrier of group B Streptococcus Is this a current diagnosis for this admission?: Yes (3) Active labor at term Is this a current diagnosis for this admission?: Yes - Additional Information Resuscitation Status: Full Code Discharge Diet: As Tolerated Discharge Activity: Activity As Tolerated, Pelvic Rest Referrals: ALMITA MALDONADO MD [Primary Care Provider] - (rtc 4 weeks) Home Medications: Pnv No.121/Iron/Folic Acid [ Multivitamin Tablet] 1 tab PO DAILY 01/04/18 Acetaminophen [Tylenol 325 mg Tablet] 650 mg PO Q4HP PRN 03/12/19 HPI Gestational Age: 38.6 Reason(s) for Admission: Onset of Labor Procedures: Ultrasound Intrapartum Procedure(s): Spontaneous Vaginal Delivery Hospital Course Hospital Course: routine Results Laboratory Results: WBC 20.0 10^3/uL (4.0-10.5) H 03/13/19 07:16 RBC 4.35 10^6/uL (3.72-5.28) 03/13/19 07:16 Hgb 12.7 g/dL (12.0-15.5) 03/13/19 07:16 Hct 37.7 % (36.0-47.0) 03/13/19 07:16 MCV 87 fl (80-97) 03/13/19 07:16 MCH 29.2 pg (27.0-33.4) 03/13/19 07:16 MCHC 33.7 g/dL (32.0-36.0) 03/13/19 07:16 RDW 14.9 % (11.5-14.0) H 03/13/19 07:16 Plt Count 197 10^3/uL (150-450) 03/13/19 07:16 Lymph % (Auto) 16.2 % (13-45) 03/12/19 18:45 [place] % (Auto) 7.3 % (3-13) 03/12/19 18:45 Eos % (Auto) 0.9 % (0-6) 03/12/19 18:45 Baso % (Auto) 0.4 % (0-2) 03/12/19 18:45 Absolute Neuts (auto) 10.5 10^3/uL (1.7-8.2) H 03/12/19 18:45 Absolute Lymphs (auto) 2.3 10^3/uL (0.5-4.7) 03/12/19 18:45 Absolute Monos (auto) 1.0 10^3/uL (0.1-1.4) 03/12/19 18:45 Absolute Eos (auto) 0.1 10^3/uL (0.0-0.6) 03/12/19 18:45 Absolute Basos (auto) 0.1 10^3/uL (0.0-0.2) 03/12/19 18:45 Seg Neutrophils % 75.2 % (42-78) 03/12/19 18:45 Urine Color YELLOW 03/12/19 18:41 Urine Appearance CLOUDY 03/12/19 18:41 Urine pH 6.0 (5.0-9.0) 03/12/19 18:41 Ur Specific [place] 1.024 03/12/19 18:41 Urine Protein 30 mg/dL (NEGATIVE) H 03/12/19 18:41 Urine Glucose (UA) NEGATIVE mg/dL (NEGATIVE) 03/12/19 18:41 Urine Ketones NEGATIVE mg/dL (NEGATIVE) 03/12/19 18:41 Urine Blood SMALL (NEGATIVE) H 03/12/19 18:41 Urine Nitrite NEGATIVE (NEGATIVE) 03/12/19 18:41 Urine Bilirubin NEGATIVE (NEGATIVE) 03/12/19 18:41 Urine Urobilinogen NEGATIVE mg/dL (<2.0) 03/12/19 18:41 Ur Leukocyte Esterase LARGE (NEGATIVE) H 03/12/19 18:41 Urine Ascorbic Acid NEGATIVE (NEGATIVE) 03/12/19 18:41 Urine Opiates Screen NEGATIVE 03/12/19 18:41 Urine Methadone Screen NEGATIVE 03/12/19 18:41 Ur Barbiturates Screen NEGATIVE 03/12/19 18:41 Ur Phencyclidine Scrn NEGATIVE 03/12/19 18:41 Ur Amphetamines Screen NEGATIVE 03/12/19 18:41 U Benzodiazepines Scrn NEGATIVE 03/12/19 18:41 Urine Cocaine Screen NEGATIVE 03/12/19 18:41 U Marijuana (THC) Screen NEGATIVE 03/12/19 18:41 RPR NONREACTIVE (NONREACTIVE) 03/12/19 18:45 Blood Type O POSITIVE 03/12/19 18:45 Antibody Screen NEGATIVE 03/12/19 18:45 Plan Health Concerns: normal pp Plan of Treatment: continue PNV', home today, baby under bili lights Goals: home with baby, routine Time Spent: Less than 30 Minutes
[2019-03-14] MEDS: FERROUS SULFATE 325 MG TABLET PO SCH (09:05)
[2019-03-14] MEDS: DOCUSATE SODIUM 100 MG CAPSULE PO SCH (09:05)
[2019-03-14] MEDS: PRENATAL VITAMIN W DHA CAPSULE PO SCH (09:05)
[2019-03-14] MEDS: SENNOSIDES/DOCUSATE 8.6-50 MG 1 EACH TABLET PO SCH (09:06)
[2019-03-14 10:56] VITALS: BP 111/66
--- NOTE | 2019-03-16 08:46 | Delivery Summary ---
Del Sum A-C Datetime Report Generated by CPN: 03/16/2019 08:46 DELIVERY PERSONNEL DELIVERY PERSONNEL: [id number] Delivery Doctor:: Hedy Laguerre MD Labor and Delivery Nurse:: Janice Salinas RN Nursery Nurse:: Julia Horton RN Poured Concrete Wall Technician/INSULATION BOARD COATER OPERATOR: Daxa Ross, ST MATERNAL INFORMATION Delivery Anesthesia: None Medications After Delivery: Pitocin Bolus-Please Comment Meds After Delivery Comment: Pitocin 20 units/1000 ML NS bolous following delivery Delivery QBL: 150 Maternal Complications: None Provider Comments: Heavy yellow meconium stained fluid noted at delivery. After delivery of the head, the shoulders and rest of the body followed easily. Cord clamping delayed for 30 seconds after oral and nasal suctioning. Cord doubly clamped and cut. Nursery RN in attendance. Infant vigorous. Both Mother and stable. LABOR SUMMARY EDC: 03/20/2019 00:00 No. Babies in Womb: 1 Attempted: No Labor Anesthesia: Intrathecal LABOR INFORMATION Reason for Induction: Not Applicable Onset of Labor: 03/12/2019 18:35 Complete Dilatation: 03/12/2019 21:15 Oxytocin: N/A Group B Beta Strep: Negative Antibiotics # of Doses: 0 Antibiotics Time of Last Dose: n/a Name of Antibiotic Given: n/a Steroids Given: None Reason Steroids Not Administered: Not Applicable MEMBRANES Membranes Rupture Method: Spontaneous Membranes Rupture Method: Spontaneous Rupture of Membranes: 03/12/2019 21:21 Length of Rupture (hr): 0.03 Amniotic Fluid Color: Particulate Meconium Amniotic Fluid Color: Heavy Meconium Amniotic Fluid Amount: Moderate Amniotic Fluid Amount: Moderate Amniotic Fluid Odor: Normal STAGES OF LABOR Stage 1 hr: 2 Stage 1 min: 40 Stage 2 hr: 0 Stage 2 min: 8 Stage 3 hr: 0 Stage 3 min: 10 Total Time in Labor hr: 2 Total Time in Labor min: 58 VAGINAL DELIVERY Episiotomy: None Laceration #1: Perineal Laceration Extension #1: Second Degree Laceration Repair: Yes Laceration Repair Note: Repaired in layered closure with 2-0 chromic Sponge Count Correct: N/A Sharps Count Correct: N/A CSECTION DELIVERY CSection Incision: N/A BABY A INFORMATION Delivery Date/Time: 03/12/2019 21:23 Method of Delivery: Vaginal Method of Delivery: Vaginal Born in Route : No : N/A Forceps: N/A Vacuum Extraction: N/A Shoulder Dystocia : No PRESENTATION/POSITION BABY A Presentation: Cephalic Cephalic Presentation: Vertex Vertex Position: Right Occipital Anterior Breech Presentation: N/A PLACENTA INFORMATION BABY A Placenta Delivery Time : 03/12/2019 21:33 Placenta Method of Delivery: Spontaneous Placenta Status: Delivered SCORES BABY A Heart Rate 1 min: >100 bpm Resp Effort 1 min: Good Cry Reflex Irritability 1 min: Cough or Sneeze or Pulls Away Muscle Tone 1 min: Active Motion Color 1 min: Body [place], Extremities Blue SCORE 1 MIN: 9 Heart Rate 5 min: >100 bpm Resp Effort 5 min: Good Cry Reflex Irritability 5 min: Cough or Sneeze or Pulls Away Muscle Tone 5 min: Active Motion Color 5 min: Body [place], Extremities Blue SCORE 5 MIN: 9 INFANT INFORMATION BABY A Gestational Age at Delivery: 38.6 Gestational Status: Early Term- 37- 38.6 Weeks Outcome : Liveborn Condition : Stable Sex: Female Sex: Female IDENTIFICATION BABY A Infant Verification Date/Time: 03/12/2019 21:36 ID Band Number: [id number] Mother's Name Verified: Yes Infant RN Verifying Infant: IqraMelisa ShawnTREMAYNE gee Additional Verifying Personnel: Humaira Alvarado RN CORD INFORMATION BABY A No. Cord Vessels: 3 Nuchal Cord : N/A Cord Blood Taken: Yes-For Eval (Mom's Blood Type - or O+) Infant Suction: Mouth; Nose; Pharynx ASSESSMENT BABY A Infant Complications: Meconium Physical Findings at Delivery: Within Normal Limits Physical Findings- Other: see initial nursery assessment flowsheet Respirations: Appears Normal Skin to Skin: Yes Skin to Skin: Yes Supervisor Newspaper Deliveries/ALS Called : No Care By: Teresa Horton RN Transferred To: [facility] with Mother SIGNATURES Signature: with User ID: [email or web address] : with User ID: [email or web address]
== END 2019-03-14 11:35 | disposition home or self-care (01) | DRG 807 ==
LOC: LC 18:15 → LR 18:48 → 2S 23:28
PROVIDERS: ADMIT Obstetrics & Gynecology; ATTEND Obstetrics & Gynecology
PROC: 10E0XZZ Delivery of Products of Conception, External Approach (ICD-10-PCS; principal; 2019-03-12)
DX: O99.824 Streptococcus B carrier state complicating childbirth (principal); Z37.0 Single live birth; O77.0 Labor and delivery complicated by meconium in amniotic fluid; Z28.21 Immunization not carried out because of patient refusal; Z3A.38 38 weeks gestation of pregnancy
CPT/HCPCS: 36415; 59025; 80307; 81005; 85025; 85027; 86592; 86850; 86900; 86901; J2300; J2590; J3490